=== PATIENT | female | born 1955 | race Caucasian/White ===

== ENCOUNTER 2016-11-07 19:11 | Observation (INO) | payer OTHER ==
[~2016-11-07] VITALS: Ht 165.1 cm; Wt 107.6 kg
[2016-11-07 19:45] LABS: HEMATOCRIT 40.8 % (36.0-46.0); MCHC 32.8 G/DL (30.0-36.0); MCV 82.1 FL (83-99); MEAN PLAT.VOLUME 9.5 uM^3 (9.5-12.4); PLATELET COUNT 280 K/uL (156-360); RBC DIS.WIDTH-CV 15.9 % (11.8-14.6); RBC DIS.WIDTH-SD 47.4 % (39-53); RED BLOOD COUNT 4.97 M/uL (3.80-5.20); WHITE BLOOD COUNT 8.8 K/uL (4.1-10.2)
[2016-11-07 19:53] LABS: CHLORIDE 103 mEq/L (99-109); POTASSIUM 3.6 mEq/L (3.7-5.4); SODIUM 136 mEq/L (136-147)
[2016-11-07 19:55] LABS: GLUCOSE 104 mg/dL (70-99)
[2016-11-07 19:56] LABS: ANION GAP 13 MEQ/L (2-14)
[2016-11-07 19:57] LABS: TOTAL BILIRUBIN 0.9 mg/dL (0.0-1.0)
[2016-11-07 19:59] LABS: ALKALINE PHOSPHATASE 66 IU/L (3-129); GFR ESTIMATE (CALCULATED) 40 mL/min/
[2016-11-07 20:00] LABS: UREA NITROGEN (BUN) 20 mg/dL (9-23)
[2016-11-07 20:06] LABS: LIPASE 24 U/L (1.0-51.0)
[2016-11-07 20:26] LABS: ADD MIUA? YES; BILIRUBIN NEGATIVE; BLOOD NEGATIVE; COLOR YELLOW ((YELLOW)); GLUCOSE (STRIP) NEGATIVE; KETONES NEGATIVE; LEUKOCYTES TRACE; NITRITE NEGATIVE; PROTEIN (STRIP) NEGATIVE; SPECIFIC GRAVITY 1.006 (1.000-1.030); UROBILINOGEN 0.2 MG/DL (0.2-1.0)
[2016-11-07 20:29] LABS: BACTERIA NONE SEEN /HPF; EPITHELIAL CELLS 1+ /HPF; MUCUS NONE SEEN /LPF; RED BLOOD CELLS 0-5 /HPF (0-5); UCUL ADDED? NO; WHITE BLOOD CELLS 0-5 /HPF (0-5)
[2016-11-07] MEDS ORDERED: ONDANSETRON ODT8 MG PO (21:33)
[2016-11-07] MEDS ORDERED: CALCITRIOL0.25 MCG PO (21:34)
[2016-11-07] MEDS ORDERED: FOLIC ACID1 MG PO (21:34)
[2016-11-07] MEDS ORDERED: LEFLUNOMIDE10 MG PO (21:34)
[2016-11-07] MEDS ORDERED: HYDROXYCHLOROQ200 MG PO (21:35)
[2016-11-07] MEDS ORDERED: BENAZEPRIL HCL40 MG PO (21:35)
[2016-11-07] MEDS ORDERED: ERGOCALCIF50000 UNIT PO (21:36)
[2016-11-07] MEDS ORDERED: ACTEMRA200 MG/10 IV (21:37)
[2016-11-07] MEDS ORDERED: DICLOFENAC SOD100 GM TP (21:38)
[2016-11-07] MEDS ORDERED: TYLENOL EXTRA500 MG PO (21:38)
[2016-11-07 23:36] VITALS: BP 134/65
[2016-11-08 04:00] VITALS: BP 107/54
[2016-11-08 06:00] LABS: HEMATOCRIT 37.2 % (36.0-46.0); MCH 26.7 PG (29.0-34.0); MCHC 31.7 G/DL (30.0-36.0); MCV 84.2 FL (83-99); MEAN PLAT.VOLUME 9.9 uM^3 (9.5-12.4); PLATELET COUNT 222 K/uL (156-360); RBC DIS.WIDTH-SD 49.3 % (39-53); RED BLOOD COUNT 4.42 M/uL (3.80-5.20)
[2016-11-08 06:27] LABS: ALKALINE PHOSPHATASE 50 IU/L (3-129); ANION GAP 9 MEQ/L (2-14); CHLORIDE 112 MEQ/L (99-109); GFR ESTIMATE (CALCULATED) 44 mL/min/; GLUCOSE 98 mg/dL (70-99); POTASSIUM 4.1 MEQ/L (3.7-5.4); SAMPLE HEMOLYSIS CHECK 0; SAMPLE ICTERIC CHECK 0; SAMPLE LIPEMIA CHECK 0; TOTAL BILIRUBIN 0.6 MG/DL (0.0-1.0); UREA NITROGEN (BUN) 19 mg/dL (9-23)
[2016-11-08 06:38] LABS: SODIUM 144 MEQ/L (136-147)
[2016-11-08 08:57] LABS: LIPASE 24 U/L (1.0-51.0)
[2016-11-08 08:58] VITALS: BP 127/73
[2016-11-08 11:40] VITALS: BP 126/59
[2016-11-08 14:53] LABS: TRIGLYCERIDES 197 MG/DL (Normal: <150)
[2016-11-08 16:00] VITALS: BP 136/74
[2016-11-08 16:42] LABS: C DIFF TOXIN POSITIVE (NEGATIVE)
[2016-11-08 16:54] LABS: PROBE CHECK PASS
[2016-11-09] VITALS: BP 126/56
[2016-11-09 04:00] VITALS: BP 122/62
[2016-11-09 05:17] LABS: BASOPHIL COUNT 0.1 K/uL (0-0.1); EOSINOPHIL (%) 9.2 % (0-5); EOSINOPHIL COUNT 0.5 K/uL (0-0.3); HEMATOCRIT 38.1 % (36.0-46.0); IMMATURE GRANULOCYTE (%) 0.7 % (0.0-0.7); INSTRUMENT ABS NEUTROPHIL CT 2.2 K/uL; LYMPHOCYTE COUNT 2.1 K/uL (1.0-2.8); MCH 27.6 PG (29.0-34.0); MCHC 32.5 G/DL (30.0-36.0); MCV 84.7 FL (83-99); MEAN PLAT.VOLUME 9.9 uM^3 (9.5-12.4); MONOCYTE (%) 11.4 % (3-12); MONOCYTE COUNT 0.6 K/uL (0-0.8); NEUTROPHIL (%) 40.1 % (45-76); NEUTROPHIL COUNT 2.2 K/uL (1.8-6.4); PLATELET COUNT 247 K/uL (156-360); RBC DIS.WIDTH-CV 16.3 % (11.8-14.6); RBC DIS.WIDTH-SD 50.4 % (39-53); WHITE BLOOD COUNT 5.5 K/uL (4.1-10.2)
[2016-11-09 05:37] LABS: ANION GAP 6 MEQ/L (2-14); CHLORIDE 111 MEQ/L (99-109); GFR ESTIMATE (CALCULATED) 53 mL/min/; GLUCOSE 106 mg/dL (70-99); POTASSIUM 4.1 MEQ/L (3.7-5.4); SAMPLE HEMOLYSIS CHECK 0; SAMPLE ICTERIC CHECK 0; SAMPLE LIPEMIA CHECK 0; SODIUM 142 MEQ/L (136-147); UREA NITROGEN (BUN) 10 mg/dL (9-23)
[2016-11-09 07:17] VITALS: BP 112/62
[2016-11-09] MEDS ORDERED: VANCOCIN HCL125 MG PO (11:17)
== END 2016-11-09 12:54 | disposition home or self-care (01) ==
LOC: EME 19:11 → EDOF 21:49 → 5WEST 21:49 → ENRESERV 21:51 → 5WEST 23:20 → ENPENDDIS 11-09 → 5WEST 11-09 12:54
PROVIDERS: Internal Medicine; Internal Medicine Gastroenterology; Student in an Organized Health Care Education/Training Program
DX: K85.90 Acute pancreatitis without necrosis or infection, unspecified (principal); A04.7 Enterocolitis due to Clostridium difficile; E86.0 Dehydration; I12.9 Hypertensive chronic kidney disease with stage 1 through stage 4 chronic kidney disease, or unspecified chronic kidney disease; N18.3 Chronic kidney disease, stage 3 (moderate); E21.3 Hyperparathyroidism, unspecified; E87.6 Hypokalemia; K62.5 Hemorrhage of anus and rectum; F32.9 Major depressive disorder, single episode, unspecified; Z88.1 Allergy status to other antibiotic agents; Z88.8 Allergy status to other drugs, medicaments and biological substances; Z87.891 Personal history of nicotine dependence
CPT/HCPCS: 80048; 80053; 81003; 83690; 84478; 85025; 85027; 86900; 86901; 87493; 99281; 99285; C9113; G0378; J1644; J2270; J2405; J3480; J7030